=== PATIENT | male | born 1985 | race African-American/Black ===

== ENCOUNTER 2017-08-12 22:07 | Emergency (ER) | payer OTHER ==
[~2017-08-12] VITALS: Ht 165.1 cm; Wt 70.5 kg
[2017-08-13] MEDS ORDERED: LIDOCAINE HCL 1% 20ML VIAL (Pyxis) INJ INFIL ONE (01:30)
[2017-08-13] MEDS ORDERED: IBUPROFEN 600MG TABLET PO ONE (02:00)
[2017-08-13 02:06] VITALS: BP 121/86
== END 2017-08-13 02:06 | disposition home or self-care (01) ==
LOC: ER 22:07
DX: S60.111A Contusion of right thumb with damage to nail, initial encounter (principal); S69.91XA Unspecified injury of right wrist, hand and finger(s), initial encounter; W23.0XXA Caught, crushed, jammed, or pinched between moving objects, initial encounter
CPT/HCPCS: 11740; 73140; 99284; J3490